=== PATIENT | female | born 1945 | race Caucasian/White ===

== ENCOUNTER 2018-06-08 10:13 | Day surgery (SDC) | payer MEDICARE ==
[~2018-06-08 10:13] MED LIST: ACETAMINOPHEN 1,000 MG/100 ML BTL IV ONE; CLINDAMYCIN 600MG/50ML PREMIX 600 MG/50 ML BAG IVPB ONE; CLINDAMYCIN PHOS/D5W 900MG 900 MG/50 ML BAG IVPB ONE
[2018-06-08] MEDS ORDERED: BUPIVACAINE 0.25% W/EPI MPF 30ML VIAL IVP ONE (10:14)
[2018-06-08] MEDS ORDERED: SCOPOLAMINE 1 PATCH TDSY TD ONE (10:14)
[2018-06-08] MEDS ORDERED: FENTANYL PF 100MCG/2ML VIAL IV ONE ×2 (10:14)
[2018-06-08] MEDS ORDERED: MIDAZOLAM HCL 2MG/2ML VIAL IV ONE ×2 (10:14)
[2018-06-08] MEDS ORDERED: LIDOCAINE 1% MDV (10MG/ML) 20ML VIAL SQ ONE ×2 (10:14)
--- NOTE | 2018-06-09 12:20 | Operative Note ---
DATE OF SURGERY: 06/08/2018 Surgeon: Rich Jimenez DO PREOPERATIVE DIAGNOSIS: Right neck mass. POSTOPERATIVE DIAGNOSIS: Right neck mass. OPERATION: Wide excision of right neck mass measuring 3 cm in the subcu. Indication: The patient is a 72-year-old female who presented with what appeared to be a cluster of sebaceous cysts in her neck. Risks, benefits, and alternatives were discussed. Risks include bleeding, infection, recurrence. She understood this fully. Thereafter, consent was signed and questions answered. PROCEDURE: The patient was taken to the operating room and placed in a supine position. Local and IV sedation was given per the department of anesthesia. The patient's neck was prepped and draped in the usual fashion. The area around the mass was anesthetized with a total of 8 mL of 0.25% Sensorcaine with epinephrine. An elliptical incision was made around incorporating the puncta. This was then carried down to subcutaneous tissue with cautery. This was then fully excised unruptured and passed off the field. The wound was irrigated and closed with 3-0 nylon. This did measure 3 cm into the subcu. She was taken to the recovery room in satisfactory condition. CC: MD ARABELLA Reyes
== END 2018-06-08 12:45 | disposition home or self-care (01) ==
LOC: SUR 10:13
PROVIDERS: ATTEND Surgery
DX: R22.1 Localized swelling, mass and lump, neck (principal); I10 Essential (primary) hypertension; M10.9 Gout, unspecified
CPT/HCPCS: 21552; 00300; J3010

== ENCOUNTER 2018-09-24 08:30 | Day surgery (SDC) | payer MEDICARE ==
[2018-09-24] MEDS ORDERED: LIDOCAINE 2% MDV (20MG/ML) 20ML VIAL IV ONE (08:31)
[2018-09-24] MEDS ORDERED: PROPOFOL 10 MG/ML VIAL IV ONE (08:31)
--- NOTE | 2018-09-25 10:20 | Operative Note ---
DATE OF SURGERY: September 24, 2018 OPERATION: COLONOSCOPY with random biopsy and photo. PREOPERATIVE DIAGNOSIS: Chronic diarrhea. POSTOPERATIVE DIAGNOSIS: Colonic diverticulosis, otherwise normal exam, rule out microscopic colitis. PROCEDURE: After informed consent was obtained from the patient, she was placed in the left lateral decubitus position in the endoscopy suite, sedated and monitored by the department of anesthesia. Digital rectal examination was unremarkable. A well-lubricated [id number] colonoscope was inserted into the rectum and advanced to the cecum. Preparation quality was good to excellent. The cecum, cecal bulb, terminal ileum, ascending colon, transverse colon, descending colon, sigmoid colon, and rectum were carefully inspected. There were a few ascending diverticula. There were mild diverticular changes in the sigmoid colon. Random biopsies were obtained throughout the length of the colon to rule out microscopic colitis. Forward and J-turn views of the rectum and anorectum were unremarkable. The endoscope was straightened, the rectal ampulla deflated, and the endoscope was removed. RECOMMENDATIONS: I would suggest the patient resume her medications and diet. Further recommendations as to whether she requires further treatment for microscopic colitis will be based on tissue pathology. In the interim, she states she did have a history of polyps, so repeat colonoscopy in 5 years would be recommended. As always, thank you for allowing me to participate in the healthcare of your patients. CC: MD ARABELLA Reyes
== END 2018-09-24 09:54 | disposition home or self-care (01) ==
LOC: HOP 08:30
PROVIDERS: ATTEND Internal Medicine Gastroenterology
DX: K52.9 Noninfective gastroenteritis and colitis, unspecified (principal); K57.30 Diverticulosis of large intestine without perforation or abscess without bleeding